=== PATIENT | female | born 2000 | race Caucasian/White ===

== ENCOUNTER 2022-09-12 07:12 | Outpatient (OUT) | payer BC, SELFPAY ==
[2023-05-14 09:30] LABS: QuantiFERON-TB Gold Plus NEGATIVE
== END 2022-09-12 07:13 | disposition home or self-care (01) ==
PROVIDERS: PCP Family Medicine; Visit Provider Family Medicine
DX: Z00.00 Encounter for general adult medical examination without abnormal findings (principal)
CPT/HCPCS: 36415; 86480

== ENCOUNTER 2024-04-10 15:51 | Outpatient (OUT) | payer BC, SELFPAY ==
[2024-04-10 16:11] LABS: Basophils Absolute Auto 0.1 10^3/uL (0.0-0.1); Basophils Percent Auto 0.8 % (0.2-2.0); Eosinophils Absolute Auto 0.1 10^3/uL (0.0-0.7); Eosinophils Percent Auto 1.3 % (0.9-7.0); Hematocrit 37.7 % (36.0-48.0); Hemoglobin 12.7 g/dL (12.0-16.0); Immature Granulocytes Abs Auto 0.02 10^3/uL (0.00-0.03); Immature Granulocytes Pct Auto 0.3 % (0.0-0.5); Lymphocytes Absolute Auto 2.5 10^3/uL (1.2-3.8); Lymphocytes Percent Auto 31.3 % (20.5-60.0); Mean Corpuscular HGB Conc 33.7 g/dL (29.9-35.2); Mean Corpuscular Hemoglobin 30.2 pg (26.7-34.0); Mean Corpuscular Volume 89.8 fL (81.0-99.0); Mean Platelet Volume 10.3 fL (9.5-13.5); Monocytes Absolute Auto 0.6 10^3/uL (0.3-0.8); Monocytes Percent Auto 8.1 % (1.7-12.0); Neutrophils Absolute Auto 4.6 10^3/uL (1.4-6.5); Neutrophils Percent Auto 58.2 % (43.0-75.0); Platelet Count 215 10^3/uL (150-450); Red Cell Distribution Width 12.3 % (11.0-15.0); White Blood Count 7.8 10^3/uL (4.0-11.0)
[2024-04-10 16:24] LABS: Estimated Average Glucose 97 mg/dL
[2024-04-10 16:34] LABS: Anion Gap 11.2; BUN Creatinine Ratio 22.4; Calcium 8.7 mg/dL (8.5-10.1); Carbon Dioxide 27.6 mmol/L (21.0-32.0); Chloride 103 mmol/L (98-107); Estimated GFR (African America >60 (>=60 mL/min/1.73m^2); Estimated GFR (Non-African Ame >60 (>=60 mL/min/1.73m^2); Glucose 120 mg/dL (74-106); Potassium 3.8 mmol/L (3.5-5.1); Sodium 138 mmol/L (136-145); Thyroid Stimulating Hormone 3.258 uIU/mL (0.358-3.740)
[2024-04-10 17:37] LABS: Free T4 1.02 ng/dL (0.76-1.46)
== END 2024-04-10 15:52 | disposition home or self-care (01) ==
LOC: LAB 15:52
PROVIDERS: PCP Family Medicine; Visit Provider Family Medicine
DX: R53.83 Other fatigue (principal); N92.0 Excessive and frequent menstruation with regular cycle; R63.1 Polydipsia
CPT/HCPCS: 36415; 80048; 82306; 82728; 83036; 84439; 84443; 85025

== ENCOUNTER 2024-06-09 14:51 | Outpatient (OUT) | payer BC, SELFPAY ==
--- NOTE | 2024-06-09 15:00 | ECG_ITS ---
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 Measurements Intervals [place] Rate: 81 P: 71 MD: 165 QRS: 92 QRSD: 82 T: 51 QT: 341 QTc: 397 Interpretive Statements SINUS RHYTHM BORDERLINE RIGHT AXIS DEVIATION [QRS AXIS > 90] POSSIBLE RIGHT VENTRICULAR CONDUCTION DELAY [RSR (QR) IN V1/V2] Borderline ECG No previous ECG available for comparison Electronically Signed On 06-09-2024 19:05:20 EDT by IGOR MANLEY M.D.
== END 2024-06-09 14:52 | disposition home or self-care (01) ==
LOC: CARD 14:52
PROVIDERS: PCP Family Medicine; Visit Provider Family Medicine
DX: R55 Syncope and collapse (principal); R53.83 Other fatigue
CPT/HCPCS: 93005

== ENCOUNTER 2024-06-20 13:51 | Outpatient (OUT) | payer BC, SELFPAY ==
--- NOTE | 2024-06-20 14:00 | CA_ITS ---
Patient Name: LALO OLIVEROS MR#: [id number] : 2000 Exam Date: 06/20/2024 Ordering Doctor: DR ADDIS BRADY M.D. ECHOCARDIOGRAM REPORT PROCEDURE: CA ECHO DOPPLER COMPLETE INDICATIONS: Syncope and collapse, fatigue COMPARISON: None. DESCRIPTION: COMPLETE ECHOCARDIOGRAM Real-time transthoracic echocardiography with 2D, M-mode, spectral and color flow Doppler performed. QUALITY: Technical quality was good. LEFT VENTRICLE: Normal chamber size. Normal left ventricular wall thickness. Normal systolic function. LV EF: Normal left ventricular ejection fraction, (>55%). DIASTOLIC: Normal diastolic function. ATRIAL SEPTUM: LEFT ATRIUM: Normal chamber size. RIGHT ATRIUM: Normal chamber size. RIGHT VENTRICLE: Normal chamber size. Normal right ventricular systolic function. TRICUSPID VALVE: Normal mobility and thickness. No stenosis with trivial regurgitation. Unable to assess right-sided pressures due to lack of measurable tricuspid regurgitation. MITRAL VALVE: Normal mobility and thickness. No evidence of mitral valve stenosis. There is no mitral annular calcification. Trivial mitral regurgitation. AORTIC VALVE: Normal trileaflet appearance. No visible sclerosis. Normal leaflet mobility. No evidence of aortic valve stenosis. No aortic regurgitation. AORTIC ROOT: Normal diameter and appearance, measuring 3.0 cm. PULMONIC VALVE: Normal thickness and mobility. No stenosis. Trivial regurgitation. PERICARDIUM: No evidence of pericardial effusion. IVC: Collapses with inspirations. IVC is normal in size. PLEURA: CONCLUSION: 1. Normal left ventricular size and systolic function. Estimated LVEF is 60%. 2. Normal right ventricular size and systolic function. 3. Normal diastolic function. 4. Normal atrial size. 5. No significant valvular dysfunction. 6. No pericardial effusion. Adult Echocardiography Procedure Report Left Ventricle LVEDD (3.7 - 5.6 cm): 4.42 cm LVESD (2.2 - 4.0 cm): 3.61 cm LVIVS thickness (0.6 - 1.2 cm): 0.64 cm LVPW thickness (0.5 - 1.0 cm): 0.73 cm e': 0.24 m/s E - e': 3.91 LVOT Max Gradient: 4.43 mm[Hg] LVOT Area (cm2): 1.05 m/s Peak Velocity (LVOT): 1.05 m/s Mean Velocity (LVOT): 0.74 m/s LVOT Diameter 1.64 cm Left Atrium LA Volume Index (2D A2C): 24.61 ml/m2 Left Atrium Systolic Dimension: 2.78 cm Mitral Valve MV E to A Ratio: 1.86 Mitral Valve A-Wave Peak Velocity: 0.50 m/s Mitral Valve E-Wave Peak Velocity: 0.92 m/s Right Ventricle Aorta AO Root Diam: 3.04 cm Aortic Valve AoV Area (Peak Oz): 1.77 cm2, 1.77 cm2 AoV Area (VTI): 1.70 cm2, 1.70 cm2 Peak Velocity(Antegrade Flow): 1.25 m/s Peak Gradient(Antegrade Flow): 6.22 mm[Hg] Mean Velocity(Antegrade Flow): 0.80 m/s Mean Gradient(Antegrade Flow): 3.08 mm[Hg] Velocity Time Integral: 25.43 cm Tricuspid Valve Pulmonic Valve Mean Gradient: 3.74 mm[Hg] Mean Velocity: 0.88 m/s Peak Velocity: 1.44 m/s, 1.28 m/s Peak Gradient: 6.52 mm[Hg], 8.34 mm[Hg] Right Atrium Right Atrium Systolic Pressure: 36.56 ml, 36.56 ml Dictated by: Frandy Salazar M.D. on 06/20/2024 at 16:39 Approved by: Frandy Salazar M.D. on 06/20/2024 at 16:41
== END 2024-06-20 13:52 | disposition home or self-care (01) ==
LOC: CARD 13:52
PROVIDERS: PCP Family Medicine; Visit Provider Family Medicine
DX: R55 Syncope and collapse (principal); R53.83 Other fatigue
CPT/HCPCS: 93306

== ENCOUNTER 2024-07-25 08:50 | Outpatient (OUT) | payer BC, SELFPAY ==
--- OUTSIDE RECORDS SUMMARY | 2024-07-25 09:00 | XMS_ITS | CCD ---
Author Organization [facility] [employer]ini[employer] Care Team Providers Care Capacitor Assembler Name Role Phone Kendal Isabel Unavailable Allergies Allergy Classification Reported Allergen(s) Allergy Type Date of Onset Reaction(s) Facility (2 sources) Sulfamethoxazole / Trimethoprim Drug Allergy Unknown [facility] Other (1 source) patient allergy list reviewed by nurse or physicia Propensity to adverse reactions 11-18-19 Comment:Done [facility] Other (1 source) Allergies Reconciled Propensity to adverse reactions Unknown [facility] Other (2 sources) Sulfamethoxazole Drug Allergy 07-10-19 Unknown Reaction [facility] (2 sources) Trimethoprim Drug Allergy 07-10-19 Unknown Reaction [facility] Medications Current Medications Medication Drug Class(es) Dates Sig (Normalized) Sig (Original) [place] (No Known Home Meds) (1 source) Start: 10-03-2023 [place] (No Known Home Meds) Active October 03, 2023 12:00am Completed/Discontinued Medications Medication Drug Class(es) Dates Sig (Normalized) Sig (Original) amoxicillin 875 mg / clavulanate 125 mg oral tablet (4 sources) Penicillin-class Antibacterial Start: 06-14-2023 End: 10-03-2023 take 1 tablet by mouth twice daily Amoxicillin-Pot Clavulanate 875-125 mg tablet Discontinued 1 TAB PO Twice daily June 14, 2023 12:00am October 03, 2023 1:26pm spironolactone 50 mg oral tablet (3 sources) Aldosterone Antagonist Start: 06-09-2024 End: 06-12-2024 take 2 tablets by mouth once at bedtime Spironolactone 50 mg tablet Discontinued MG PO June 09, 2024 12:00am June 12, 2024 3:12pm [employer] tablets Orally once at HS; Note: Source Status: Taking; Provider: Maame Edmonds ( ) take 2 tablets by [facility] once at bedtime Spironolactone 50 MG 2 tablets Orally on ce at HS Active terbinafine hydrochloride 10 mg/ml topical cream (2 sources) Allylamine Antifungal Start: 10-03-2023 End: 06-12-2024 Terbinafine Hcl 1 % cream Discontinued 1 APPLIC TOPICAL Twice daily October 03, 2023 12:00am June 12, 2024 3:13pm Problems Active Problems Problem Classification Problem Date Documented Da te Episodic/Chronic Malaise and fatigue (4 sources) Fatigue; Translations: [Other fatigue] 04-10-2024 Episodic Menstrual disorders (4 sources) Menorrhagia; Translations: [Excessive and frequent menstruation with regular cycle] 04-10-2024 Chronic Mycoses (2 sources) Tinea corporis; Translations: [Tinea corporis] 10-03-2023 Episodic Other nutritional; endocrine; and metabolic disorders (2 sources) Excessive thirst; Translations: [Polydipsia] 04-10-2024 Episodic Other nutritional; endocrine; and metabolic disorders (2 sources) Polydipsia; Translations: [Polydipsia] 04-10-2024 Episodic Other upper respiratory infections (5 sources) Acute maxillary sinusitis; Translations: [Acute maxillary sinusitis, unspecified] 06-14-2023 Episodic Syncope (1 source) Syncope and collapse; Translations: [Syncope and collapse] 04-13-2024 Episodic Unclassified (1 source) Need for prophylactic vaccination and inoculation against unspecified single bacterial disease; Translations: [Need for prophylactic vaccination and inoculation against unspecified single bacterial disease] Onset: 09-13-2017 Past or Other Problems Problem Classification Problem Date Documented Da te Episodic/Chronic Other inflammatory condition of skin (1 source) Pruritic rash; Translations: [Other prurigo] Onset: 12-02-2015 Episodic Other skin disorders (1 source) Hidradenitis suppurativa; Translations: [Hidradenitis suppurativa] Onset: 11-08-2015 Episodic Other skin disorders (1 source) Hair and hair follicle diseases; Translations: [Other specified disease of hair and hair follicles] Onset: 11-18-2015 Episodic Results Test Name Value Interpretation Reference Range Facil ity Basophils Auto (Bld) [#/Vol] on 04-10-2024 Basophils (Bld) [#/Vol] Automated basophil count 0.0-0.1 [facility] Basophils/100 WBC Auto (Bld) on 04-10-2024 Basophils/100 WBC (Bld) Automated basophil % 0.2-2.0 [facility] Eosinophils/100 WBC Auto (Bl d)on 04-10-2024 Eosinophils/100 WBC (Bld) Automated eosinophil % 0.9-7.0 [facility] Erythrocyte distribution wid th Auto (RBC) [Ratio]on 04-10-2024 Erythrocyte distribution width (RBC) [Ratio] Erythrocyte distribution width [Ratio] by Automated count 11.0-15.0 [facility] Estimated glomerular filtrat ion rate (GFR) non- Americanon 04-10-2024 GFR/1.73 sq M.predicted among non-blacks MDRD (S/P/Bld) [Vol rate/Area] Estimated glomerular filtration rate (GFR) non- >=60 mL/min/1.73m 2 [facility] Glucose mean value [Mass/vol ume] in Blood Estimated from glycated hemoglobinon 04-10-2024 Average glucose Estimated from glycated hemoglobin (Bld) [Mass/Vol] Glucose mean value [Mass/volume] in Blood Estimated from glycated hemoglobin [facility] Hematocrit Auto (Bld) [Volum e fraction]on 04-10-2024 Hematocrit (Bld) [Volume fraction] Hematocrit [Volume Fraction] of Blood by Automated count 36.0-48.0 [facility] Hemoglobin A1c percentageon 04-10-2024 HbA1c (Bld) [Mass fraction] Hemoglobin A1c percentage 4.5-6.2 [facility] Comment on above: ADA RECOMMENDED LIMI T 4.0 - 6.0ADA THERAPEUTIC TARGET < 7.0ACTION SUGGESTED> 7.0 Hemoglobin [Mass/volume] in Bloodon 04-10-2024 Hemoglobin (Bld) [Mass/Vol] Hemoglobin [Mass/volume] in Blood 12.0-16.0 [facility] Laboratory - Chemistry and C hemistry - challengeon 02-24-2025 Calcium [Mass/Vol] 8.7 mg/dL 8.5-10.1 [facility] Chloride [Moles/Vol] 103 mmol/L 98-107 [facility] CO2 [Moles/Vol] 27.6 mmol/L 21.0-32.0 [facility] Creatinine [Mass/Vol] 0.98 mg/dL 0.55-1.02 [facility] Ferritin [Mass/Vol] 43.0 ng/mL 8.0-252.0 [facility] Free T4 [Mass/Vol] 1.02 ng/dL 0.76-1.46 [facility] GFR/1.73 sq M.predicted MDRD (S/P/Bld) [Vol rate/Area] mL/min/{1.73_m2} >=60 mL/min/1.73m 2 [facility] Glucose [Mass/Vol] 120 mg/dL High 74-106 [facility] Potassium [Moles/Vol] 3.8 mmol/L 3.5-5.1 [facility] Sodium [Moles/Vol] 138 mmol/L 136-145 [facility] TSH Qn 3.258 m[IU]/L 0.358-3.740 [facility] Urea nitrogen [Mass/Vol] 22.0 mg/dL High 7.0-18.0 [facility] Urea nitrogen/Creatinine [Mass ratio] 22.4 mg/mg [facility] Laboratory - Hematology and Cell countson 04-10-2024 Immature granulocytes/100 WBC (Bld) 0.3 % 0.0-0.5 [facility] Leukocytes [#/volume] correc mamie for nucleated erythrocytes in Blood by Automated counon 04-10-2024 WBC corrected for nucl RBC Auto (Bld) [#/Vol] Leukocytes [#/volume] corrected for nucleated erythrocytes in Blood by Automated coun 4.0-11.0 [facility] Lymphocytes Auto (Bld) [#/Vo l]on 04-10-2024 Lymphocytes (Bld) [#/Vol] Lymphocytes [#/volume] in Blood by Automated count 1.2-3.8 [facility] Lymphocytes/100 WBC Auto (Bl d)on 04-10-2024 Lymphocytes/100 WBC (Bld) Lymphocytes/100 leukocytes in Blood by Automated count 20.5-60.0 [facility] MCH Auto (RBC) [Entitic mass ]on 04-10-2024 MCH (RBC) [Entitic mass] MCH [Entitic mass] by Automated count 26.7-34.0 [facility] MCHC Auto (RBC) [Mass/Vol]on 04-10-2024 MCHC (RBC) [Mass/Vol] MCHC [Mass/volume] by Automated count 29.9-35.2 [facility] MCV Auto (RBC) [Entitic vol] on 04-10-2024 MCV (RBC) [Entitic vol] MCV [Entitic volume] by Automated count 81.0-99.0 [facility] Monocytes Auto (Bld) [#/Vol] on 04-10-2024 Monocytes (Bld) [#/Vol] Automated blood monocyte count 0.3-0.8 [facility] Monocytes/100 WBC Auto (Bld) on 04-10-2024 Monocytes/100 WBC (Bld) Automated monocyte % 1.7-12.0 [facility] Neutrophils Auto (Bld) [#/Vo l]on 04-10-2024 Neutrophils (Bld) [#/Vol] Neutrophils [#/volume] in Blood by Automated count 1.4-6.5 [facility] Neutrophils/100 WBC Auto (Bl d)on 04-10-2024 Neutrophils/100 WBC (Bld) Automated neutrophil % 43.0-75.0 [facility] No Panel Informationon 04-10 25-Hydroxy Vitamin D Total 32.0 ng/mL [facility] Comment on above: <20 ng/mL Vit D defi cient20-<30 ng/mL Vit D -636 ng/mL Vit D sufficient>100 ng/mL Potential Toxicity Eosinophils # (Auto) 0.1 10 3/uL 0.0-0.7 [facility] Immature Granulocyte # (Auto) 0.02 10 3/uL 0.00-0.03 [facility] Platelet mean volume Auto (B ld) [Entitic vol]on 04-10-2024 Platelet mean volume (Bld) [Entitic vol] Platelet mean volume [Entitic volume] in Blood by Automated count 9.5-13.5 [facility] Platelets Auto (Bld) [#/Vol] on 04-10-2024 Platelets (Bld) [#/Vol] Platelets [#/volume] in Blood by Automated count 150-450 [facility] RBC Auto (Bld) [#/Vol]on RBC (Bld) [#/Vol] Erythrocytes [#/volume] in Blood by Automated count 4.20-5.40 [facility] Serum or plasma anion gap de terminationon 04-10-2024 Anion gap [Moles/Vol] Serum or plasma anion gap determination [facility] Vital Signs Date Time Vital Sign Value Performing Clinician Facility 06-12-2024 15:09-0400 Body height 179.07 cm [facility] 06-12-2024 15:09-0400 Body mass index (BMI) [Ratio] 19.6 kg/m2 [facility] 06-12-2024 15:09-0400 Body weight 63.04 kg [facility] 06-12-2024 15:09-0400 Diastolic blood pressure 80 mm[Hg] [facility] 06-12-2024 15:09-0400 Heart rate 82 /min [facility] 06-12-2024 15:09-0400 Systolic blood pressure 133 mm[Hg] [facility] 04-10-2024 15:18-0500 Body height 179.07 cm [facility] 04-10-2024 15:18-0500 Body mass index (BMI) [Ratio] 19.2 kg/m2 [facility] 04-10-2024 15:18-0500 Body weight 61.68 kg [facility] 04-10-2024 15:18-0500 Diastolic blood pressure 78 mm[Hg] [facility] 04-10-2024 15:18-0500 Heart rate 113 /min [facility] 04-10-2024 15:18-0500 Respiratory rate 18 /min [facility] 04-10-2024 15:18-0500 SaO2% (BldA) [Mass fraction] 98 % [facility] 04-10-2024 15:18-0500 Systolic blood pressure 130 mm[Hg] [facility] 10-03-2023 13:33-0400 Body height 179.07 cm [facility] 10-03-2023 13:33-0400 Body mass index (BMI) [Ratio] 19 kg/m2 [facility] 10-03-2023 13:33-0400 Body temperature 97.6 [degF] [facility] 10-03-2023 13:33-0400 Body weight 60.95 kg [facility] 10-03-2023 13:33-0400 Diastolic blood pressure 71 mm[Hg] [facility] 10-03-2023 13:33-0400 Heart rate 73 /min [facility] 10-03-2023 13:33-0400 Respiratory rate 16 /min [facility] 10-03-2023 13:33-0400 SaO2% (BldA) [Mass fraction] 94 % [facility] 10-03-2023 13:33-0400 Systolic blood pressure 112 mm[Hg] [facility] 07-09-2022 14:45-0400 Body height 175.26 cm Kendal Isabel Other [facility] Other 07-09-2022 14:45-0400 Body mass index (BMI) [Ratio] 20.97 kg/m2 Kendal Isabel Other [facility] Other 07-09-2022 14:45-0400 Body weight 64.41 kg Kendal Isabel Other [facility] Other 07-09-2022 14:45-0400 Diastolic blood pressure 85 mm[Hg] Kendal Isabel Other [facility] Other 07-09-2022 14:45-0400 Systolic blood pressure 128 mm[Hg] Kendal Isabel Other [facility] Other Encounters Encounter Date Encounter Type Care Provider Facility Start: 06-12-2024 End: 06-12-2024 ambulatory [facility] Work Phone: Start: 06-12-2024 End: 06-12-2024 Patient encounter procedure [facility] Work Phone: Start: 04-10-2024 End: 04-10-2024 ambulatory [facility] Work Phone: Start: 04-10-2024 End: 04-10-2024 Patient encounter procedure [facility] Work Phone: Start: 10-03-2023 End: 10-03-2023 ambulatory [facility] Work Phone: Start: 10-03-2023 End: 10-03-2023 Patient encounter procedure [facility] Work Phone: Start: 06-14-2023 End: 06-14-2023 ambulatory [facility] Work Phone: Start: 06-14-2023 End: 06-14-2023 Patient encounter procedure [facility] Work Phone: Start: 09-10-2022 End: 09-10-2022 ambulatory Kendal Isabel Other [facility] Other Start: 09-10-2022 Encounter for genera l adult medical examination without abnormal findings Kendal Isabel [facility] Start: 09-10-2022 Telephone encounter Kendal Isabel [facility] Start: 07-09-2022 End: 07-09-2022 ambulatory Kendal Isabel Other [facility] Other Start: 07-09-2022 Encounter for genera l adult medical examination without abnormal findings Kendal Isabel [facility] Start: 07-09-2022 Periodic preventive med est patient 18-39 yrs Kendal Isabel [facility] Procedures Date Procedure Procedure Detail Performing Clinician School admission med ical examination Kendal Isabel Other Plan of Treatment Date Care Activity Detail Author [facility] Immunizations Immunization Date Immunization Notes Care Provider Batool jono 09-13-2017 meningococcal oligosaccharide (groups A, C, Y and W-135) diphtheria toxoid conjugate vaccine (MCV4O) Kendal Isabel Other [facility] Payers Date Payer Category Payer Policy ID [facility] [[email or web address]] [id number] Social History Date Type Detail Facility Unknown if ever smoked [facility] Other Sex Assigned At Sex Assigned At Bir th [employer] [facility] Shot Stats Other Start: 2000 Sex Assigned At Female F [facility] Start: 04-10-2024 End: 04-10-2024 Tobacco smoking status NHIS Never smoked tobacco (finding) [facility] Start: 04-10-2024 End: 06-12-2024 Sex Female (finding) [facility] Evaluation note 04-10-2024 Note Date & Type Note Facility 04-10-2024 Evaluation note Diagnosis Onset Date Resolution Fatigue acute April 10, 2024 3:16pm Menorrhagia acute March 3:16pm Polydipsia acute April 10, 2024 3:16pm [facility] Work Phone: Evaluation note 09-10-2022 Note Date & Type Note Facility 09-10-2022 Evaluation note Encounter Date Diagnosis Assessment Notes Aug, Wellness examination (ICD-10 - Z00.00) [employer] Other Evaluation note 07-09-2022 Note Date & Type Note Facility 07-09-2022 Evaluation note Encounter Date Diagnosis Assessment Notes June, Wellness examination (ICD-10 - Z00.00) Leonie is in good health. 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 Age appropriate screening & recommendations reviewed and discussed. [facility] Other Evaluation note Note Date & Type Note Facility Evaluation note Diagnosis Onset Date Sinusitis, acute maxillary a cute [facility] Work Phone: Evaluation note Note Date & Type Note Facility Evaluation note No assessment information availa ble [facility] Work Phone: Evaluation note Note Date & Type Note Facility Evaluation note Diagnosis Onset Date Resolution Fatigue acute April 10, 2024 3:16pm Menorrhagia acute March 3:16pm Polydipsia acute April 10, 2024 3:16pm [facility] Work Phone: History general Narrative - Reported Note Date & Type Note Facility History general Narrative - Reported Type Medical History Acne [facility] Other History general Narrative - Reported Note Date & Type Note Facility History general Narrative - Reported Type Medical History Acne Surgical History Problem Title : past surgical history reviewed, Problem Description : past surgical history reviewed, Problem Comment : reviewed - no changes required, Problem Status : Active, [facility] Other Chief Complaint and Reason for Visit Chief Complaint [phone] Congest ion Reason for Visit Sinusitis, acute max illary Chief Complaint Poss ring worm on ne ck Chief Complaint Admit Date concerns wants to dicuss April 10, 2024 3:16pm Reason for Visit Admit Date Fatigue April 10, 2024 3:16pm Menorrhagia April 10, 2024 3:16pm Polydipsia April 10, 2024 3:16pm Chief Complaint Admit Date concerns wants to dicuss April 10, 2024 3:16pm Discuss Medical Concerns June 12 3:07pm Advance Directives Advance Directive Response Recorded Date/ Time Advance Directives No June 13 024 10:02am Advance Directive Response Recorded Date/ Time Advance Directives No June 13 024 9:02am Additional Source Comments REASON FOR VISIT (unrecogniz ed section and content) 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 Care Teams (unrecognized sec tion and content) Team Status: Active Member Role Status Dates Kendal Isabel MD Primary Care Provider Active Team Status: Inactive Member Role Status Dates Kendal Isabel MD Primary Care Provide r, Attending Provider Active Start: June 14, 2023 End: June 14, 2023 Team Status: Inactive Member Role Status Dates Kendal Isabel MD Primary Care Provider Active Start: October 03, 2023 End: October 03, 2023 Radha Hendricks APRN Attending Provider Active Start: October 03, 2023 End: October 03, 2023 Team Status: Inactive Member Role Status Dates Kendal Isabel MD Primary Care Provide r, Attending Provider Active Start: April 10, 2024 End: April 10, 2024 Team Status: Inactive Member Role Status Dates Kendal Isabel MD Primary Care Provide r, Attending Provider Active Start: June 12, 2024 End: June 12, 2024 Goals (unrecognized section and content) Goals may be documented in a n alternate section FOR RECORDS PERTAINING TO PATIENTS WHO ARE OR HAVE BEEN ENROLLED IN A CHEMICAL DEPENDENCY/SUBSTANCEABUSE PROGRAM, SOME INFORMATION MAY BE OMITTED. This clinical summary was aggregated from multiple sources. Caution should be exercised in using it in the provision of clinical care. This summary normalizes information from multiple sources, and as a consequence, information in this document may materially change the coding, format and clinical context of patient data. In addition, data may be omitted in some cases. CLINICAL DECISIONS SHOULD BE BASED ON THE PRIMARY CLINICAL RECORDS. [employer] provides no warranty or guarantee of the accuracy or completeness of information in this document.
== END 2024-07-25 08:51 | disposition home or self-care (01) ==
LOC: LAB 08:51
PROVIDERS: PCP Family Medicine; Visit Provider Internal Medicine Cardiovascular Disease
DX: R55 Syncope and collapse (principal)
CPT/HCPCS: 36415; 82533